=== PATIENT | male | born 1995 | race Caucasian/White ===

== ENCOUNTER 2024-09-10 01:10 | Inpatient (IN) | payer MEDICAID, OTHER ==
[~2024-09-10] VITALS: Ht 190.5 cm; Wt 83.0 kg
[2024-09-10 01:33] VITALS: TEMP 98.3
--- NOTE | 2024-09-10 01:39 | Physician Documentation ---
History of Present Illness ~ Stated Complaint: SEIZURE Time Seen by MD: 01:38 HPI Correct chart and name Medication Reconciliation Allergies: Coded Allergies: No Known Allergies (Unverified , 09/10/24) Progress Results/Orders Results/Orders Orders - LEOPOLDO JANE MD Hospitalist (09/10/24 04:21) Completed Orders - LEOPOLDO JANE MD Lorazepam Inj (Ativan Inj) (09/10/24 01:40) Chlordiazepoxide Capsule (Librium Capsul (09/10/24 01:40) Diazepam Inj (Valium Inj) (09/10/24 03:30) Chlordiazepoxide Capsule (Librium Capsul (09/10/24 03:30) Medications Received in ER Medications (Trade) Dose Ordered Sig/Hoang Route PRN Reason Start Time Stop Time Status Last Admin Dose Admin (Ativan inj) 1 mg ONCE ONCE IV 09/10/24 01:40 09/10/24 01:41 DC 09/10/24 01:48 1 MG (Librium capsule) 25 mg ONCE ONCE PO 09/10/24 01:40 09/10/24 01:52 DC 09/10/24 02:08 25 MG (Valium inj) 10 mg ONCE ONCE IV 09/10/24 03:30 09/10/24 03:34 DC 09/10/24 03:48 10 MG (Librium capsule) 50 mg ONCE ONCE PO 09/10/24 03:30 09/10/24 03:34 DC 09/10/24 03:48 50 MG Sodium Chloride 1,000 ml @ 100 mls/hr Q10H IV 09/10/24 05:00 09/10/24 05:24 100 MLS/HR Vital Signs 09/10/24 09/10/24 01:33 01:40 Temp 98.3 Pulse 101 Resp 16 13 B/P (MAP) 128/94 Pulse Ox 96 Departure Impression: Primary Impression: Alcohol withdrawal syndrome Referrals: NO PRIMARY CARE PROVIDER (PCP) Signature Scribe Signature: na Attestation: na Addendum A duplicate chart was created on this patient. There are 2 notes, for the same patient same encounter. This is a copy of the other note, so that both notes in both encounters will contain the correct information. Leopoldo Jane MD 29-year-old male, history of alcohol abuse, who presents with a reported seizure. Per EMS, the patient arrives from home, where he had a witnessed tonic-clonic seizure. By time of their arrival he had improved and was no longer confused. Blood glucose normal. Per parents, the patient had a 2 minute tonic-clonic type seizure at home today. He was confused afterwards. They report prior to this he appeared very shaky and tremulous. The patient tells me that he has been an alcoholic for a long time. His last drink was 3 days ago. He is currently visiting his parents. He has been feeling shaky. He does not remember the events of tonight. Currently he denies any significant pain or injury. He did not bite his tongue. He does feel shaky, but he does not feel nauseous. No history of alcohol withdrawal seizures. Medication Reconciliation Medication Reconciliation Allergies: Coded Allergies: No Known Allergies (Unverified , 01/14/11) No Active Prescriptions or Reported Meds Past History Past Medical History Past Medical History: No Pertinent History, Depression Past Surgical History: no surgical history Alcohol Use: None Drug Use: marijuana Lives with: Mother Lives In: Home Occupation: student Review of Systems Review of Systems Constitutional: Denies: fever Neurological: Reports: tonic-clonic seizures; Denies: headache Physical Exam-Seizure Physical Exam Vital Signs: Temperature: 97.8, Source: Oral, Heart Rate: 100, Respiratory Ra te: 17, BP: 147/98, Pulse Oximetry: 99, Weight: 83.000 Oxygen Flow Rate: 0 Physical Exam General: This is a thin young male, awake and alert, tremulous, parents at bedside later HEENT: Atraumatic, oropharynx appears dry, no tongue laceration Heart: Mild tachycardic, appears regular Lungs: normal work of breathing, normal oxygen saturation on room air Abdomen: Soft, nondistended, nontender all quadrants Extremities: Warm and well-perfused, no traumatic findings Neuro: Alert and oriented. Psychiatric: Calm and cooperative with exam. He does not appear clinically intoxicated. He does have a mild tremor in his extremities, tongue fasciculations, and appears anxious. He does have findings concerning for alcohol withdrawal Septic Shock Reassessment Sepsis Screening Picture Picture Procedures-Seizure Procedures Progress - General Progress Results/Orders Results/Orders Orders - LEOPOLDO JANE MD Lactic,2hr (09/10/24 03:00) Completed Orders - LEOPOLDO JANE MD CMP (09/10/24 00:50) Cbc/Diff (09/10/24 00:50) LA (09/10/24 00:50) Lorazepam Inj (Ativan Inj) (09/10/24 00:55) Chlordiazepoxide Capsule (Librium Capsul (09/10/24 00:55) Vital Signs 09/10/24 00:45 Temp 97.8 Pulse 100 Resp 17 B/P (MAP) 147/98 Pulse Ox 99 O2 Flow Rate 0 Laboratory Tests Test 09/10/24 01:12 White Blood Count 3.6 L Red Blood Count 3.57 L Hemoglobin 13.1 L Hematocrit 37.9 L Mean Corpuscular Volume 106.2 H Mean Corpuscular Hemoglobin 36.8 H Mean Corpuscular Hemoglobin Concent 34.7 Red Cell Distribution Width 13.0 Platelet Count 127 L Mean Platelet Volume 9.2 Neutrophils (%) (Auto) 70.1 Lymphocytes (%) (Auto) 19.2 L Monocytes (%) (Auto) 7.8 Eosinophils (%) (Auto) 1.6 Basophils (%) (Auto) 1.3 H Neutrophils # (Auto) 2.5 Lymphocytes # (Auto) 0.7 L Monocytes # (Auto) 0.3 Eosinophils # (Auto) 0.1 Basophils # (Auto) 0.0 CBC Comment Sodium Level 141 Potassium Level 3.3 L Chloride Level 103 Carbon Dioxide Level 26.8 Anion Gap 11 Blood Urea Nitrogen 10 Creatinine 0.94 Estimated GFR/1.73 m2 > 90 BUN/Creatinine Ratio 10.6 Glucose Level 163 H Lactic Acid Level 4.3 *H Calcium Level 9.4 Total Bilirubin 1.5 H Aspartate Amino Transf (AST/SGOT) 172 H Alanine Aminotransferase (ALT/SGPT) 121 H Alkaline Phosphatase 101 Total Protein 7.3 Albumin 3.8 Globulin 3.5 Albumin/Globulin Ratio 1.1 Chemistry Comments Consults/PCP Consults/PCP : Additional Comment Consult: I spoke to the internal medicine service, for admission in the hospital Heart Score Medical Decision Making-SZ Medical Decision Making Differential Dx:Considerations: Include: Hyperventilation, Psychogenic seizure, Due to alcohol withdrawl, Anticonvulsant withdrawl, Due to closed head injury, Due to drug ingestion, Epilepsy-break through Assessment The patient presents with a witnessed seizure, in the setting of recently stopping alcohol. His history and exam are all consistent with alcohol withdrawal and this was likely an alcohol withdrawal seizure. No evidence of trauma. No headache or head injury. He was given benzodiazepines. Laboratory testing shows mild hypokalemia but no other acute or dangerous finding. Lactate is slightly elevated as expected in the setting of a seizure. The patient will be admitted for further observation and treatment given that he had a seizure today related to alcohol withdrawal. LEOPOLDO JANE MD September 10, 2024 01:39
[2024-09-10] MEDS: LORazepam 2 mg/ml vial IV ONE (01:48)
[2024-09-10] MEDS: chlordiazePOXIDE 25mg capsule PO ONE ×2 (02:08→03:48)
[2024-09-10] MEDS: diazepam inj 5 MG/ML inj. IV ONE (03:48)
[2024-09-10] MEDS ORDERED: ondansetron/PF 4mg/2ml inj IV PRN (05:00)
[2024-09-10] MEDS ORDERED: magnesium sulf-water 2g/50mL 50 ML IV PRN (05:00)
[2024-09-10] MEDS ORDERED: mag hydrox/Alum hydrox/simeth 30ml oral suspension PO PRN (05:00)
[2024-09-10] MEDS ORDERED: magnesium hydroxide 30ml (MOM) UD suspension PO PRN (05:00)
[2024-09-10] MEDS ORDERED: magnesium Cl slow-release 64mg tablet PO PRN (05:00)
[2024-09-10] MEDS ORDERED: potassium Cl 40MEQ/1/2NS 520ml 520 ML IV PRN (05:00)
[2024-09-10] MEDS ORDERED: magnesium sulf-water 4G/100mL 100 ML IV PRN (05:00)
[2024-09-10] MEDS ORDERED: acetaminophen 325mg tablet PO PRN (05:00)
[2024-09-10] MEDS ORDERED: potassium Cl 20 mEq SR tablet PO PRN ×2 (05:00)
[2024-09-10] MEDS ORDERED: LORazepam 2 mg/ml vial IV PRN (05:15)
[2024-09-10] MEDS ORDERED: haloperidol 5mg tablet PO PRN (05:15)
[2024-09-10] MEDS ORDERED: haloperidol lactate 5mg/ml inj IM PRN (05:15)
[2024-09-10] MEDS: normal saline 1000ml 1,000 ML IV SCH (05:24)
[2024-09-10 07:59] LABS: MAGNESIUM 2.1 MG/DL (1.5-2.4); POTASSIUM 3.6 MMOL/L (3.5-5.1)
[2024-09-10] MEDS: heparin, porcine 5000 units/ml vial SQ SCH (08:00)
[2024-09-10] MEDS: K and/or MAG REPLACEMENT MC SCH (08:00)
[2024-09-10] MEDS: multivitamins, therapeutics tablet PO SCH (10:11)
[2024-09-10] MEDS: docusate sod 100mg capsule PO SCH (10:11)
[2024-09-10] MEDS: thiamine 100mg/ml 2ml inj. IV SCH (10:12)
[2024-09-10 10:21] VITALS: BP 118/89; PULSE 78; RESP 18; O2SAT 98
[2024-09-10] MEDS: folic acid 1mg/0.2ml inj IV SCH (10:30)
[2024-09-12] MEDS ORDERED: LORazepam 2 mg/ml vial IV PRN (05:00)
[2024-09-12] MEDS ORDERED: LORazepam 1 MG tablet PO PRN (05:00)
[2024-09-13] MEDS ORDERED: thiamine 100mg tablet PO SCH (08:00)
[2024-09-14] MEDS ORDERED: LORazepam 1 MG tablet PO PRN (05:00)
[2024-09-14] MEDS ORDERED: LORazepam 2 mg/ml vial IV PRN (05:00)
[2024-09-14] MEDS ORDERED: folic acid 1mg tablet PO SCH (08:00)
== END 2024-09-10 11:31 | disposition left against medical advice (07) | DRG 101 ==
LOC: EDBD → ER 01:12 → MERGE 05:03 → ED HOLD 05:03
PROVIDERS: ADMIT Internal Medicine Sleep Medicine; ATTEND Internal Medicine
DX: G40.89 Other seizures (principal); F10.239 Alcohol dependence with withdrawal, unspecified; E87.6 Hypokalemia; Z53.29 Procedure and treatment not carried out because of patient's decision for other reasons
CPT/HCPCS: 36415; 83735; 84132; 96374; 96375; 99285; A4615; G0378; J2060; J3360; J3411; J3490; J7030